=== PATIENT | male | born 1990 | race Caucasian/White ===

== ENCOUNTER → 2023-12-02 | Outpatient (REF) | payer BC | LOC: M LAB REF 16:23 | PROVIDERS: ATTEND Physician Assistant | DX: J02.9 Acute pharyngitis, unspecified (principal) ==

== ENCOUNTER → 2024-06-26 | Outpatient (REF) | payer BC | LOC: M LAB REF 16:26 | PROVIDERS: ATTEND Physician Assistant Medical | DX: B34.9 Viral infection, unspecified (principal) ==